=== PATIENT | female | born 1985 | race Caucasian/White ===

== ENCOUNTER 2024-08-13 16:48 | Emergency (ER) | payer MEDICAID ==
[~2024-08-13] VITALS: Ht 167.6 cm; Wt 77.0 kg
[2024-08-13] MEDS: hydrOXYzine 25 MG tablet PO ONE (19:34)
[2024-08-13] MEDS ORDERED: HYDR-3686 PO (19:38)
[2024-08-13] MEDS: triamcinolone acetonide 40mg/ml inj IM ONE (19:39)
[2024-08-13 19:51] VITALS: BP 149/89; PULSE 95; RESP 16; TEMP 97.7; O2SAT 98
== END 2024-08-13 19:52 | disposition home or self-care (01) ==
LOC: ER 16:48
DX: L50.9 Urticaria, unspecified (principal); F41.9 Anxiety disorder, unspecified
CPT/HCPCS: 96372; 99283; J3301; Q0177